=== PATIENT | male | born 1980 | race Caucasian/White ===

== ENCOUNTER 2018-07-11 11:36 | Emergency (ER) | payer MEDICAID ==
[~2018-07-11] VITALS: Ht 172.7 cm; Wt 93.4 kg
[2018-07-11 11:40] VITALS: BP 139/72; Ht 172.7 cm; Wt 93.4 kg
[2018-07-11] MEDS ORDERED: LISINOPRIL-HCT1 EAC8 PO (11:43)
[2018-07-11] MEDS ORDERED: NORVASC5 MG PO (11:44)
[2018-07-11 12:28] LABS: BASOPHILS 0.2 % (0-2); EOSINOPHILS 0.3 % (0-7); HEMATOCRIT 46.3 % (42.0-54.0); HEMOGLOBIN 16.4 g/dL (13.5-17.5); IMMATURE GRANULOCYTES 0.2 % (0-5); LYMPHOCYTES 21.8 % (15-50); MCH 32.4 pg (26.0-34.0); MCHC 35.4 g/dL (31.0-37.0); MCV 91.5 fL (80.0-100.0); MEAN PLATELET VOLUME 9.4 fL (7.4-10.4); MONOCYTES 5.4 % (2-11); NEUTROPHILS 72.1 % (40-80); PLATELET COUNT 227 10x3/uL (130-400); RBC 5.06 10x6/uL (4.20-6.10); RDW 12.7 % (11.5-14.5); WBC 8.9 10x3/uL (4.8-10.8)
[2018-07-11 12:32] LABS: APTT 25.4 SECONDS (22.8-39.4); INR 1.01 (0.85-1.17); PROTIME 12.8 SECONDS (11.6-15.0)
[2018-07-11 12:36] LABS: ALBUMIN 4.2 g/dL (3.4-5.0); ALKALINE PHOSPHATASE 51 U/L (46-116); ALT (SGPT) 44 U/L (10-68); CALC OSMOLALITY 280 mosm/kg (275-300); CALCIUM 8.9 mg/dL (8.5-10.1); CARBON DIOXIDE 26.4 mmol/L (21.0-32.0); CHLORIDE - SERUM 103 mmol/L (98-107); GLUCOSE 106 mg/dL (74-106); POTASSIUM - SERUM 3.5 mmol/L (3.5-5.1); PROTEIN - SERUM 7.5 g/dL (6.4-8.2); SODIUM 140 mmol/L (136-145); UREA NITROGEN 17 mg/dL (7-18); eGFR NON AFRICAN AMERICAN 89 mL/min (90-120)
[2018-07-11 18:31] VITALS: Ht 172.7 cm; Wt 93.4 kg
== END 2018-07-11 13:45 | disposition home or self-care (01) ==
LOC: D.ER 11:36
PROVIDERS: Family Medicine
DX: S30.21XA Contusion of penis, initial encounter (principal); X58.XXXA Exposure to other specified factors, initial encounter; Y93.89 Activity, other specified; Y92.019 Unspecified place in single-family (private) house as the place of occurrence of the external cause

== ENCOUNTER 2018-07-11 16:22 | Day surgery (SDC) | payer MEDICAID ==
[~2018-07-11 16:22] MED LIST: LISINOPRIL-HCT1 EAC8 PO; NORVASC5 MG PO
[2018-07-11 18:31] VITALS: BP 117/73; BMI 30.4
--- NOTE | 2018-07-11 22:30 | NUR ---
RESEVED PT FROM RECOVERY. PT ALERT AND ORIENTED. NO SIGNS OF DISTRESS. BREATHING EVEN AND ULABORED. 3LO2 NASAL CANNULA. VITALS STABLE. WILL FALLOW UP
[2018-07-11 22:37] VITALS: BP 121/79
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
== END 2018-07-11 23:45 | disposition home or self-care (01) ==
LOC: D.OPS 16:22 → D.MS 22:15 → D.OPS 23:45
PROVIDERS: ATTEND Urology
DX: S30.21XA Contusion of penis, initial encounter (principal); X58.XXXA Exposure to other specified factors, initial encounter; Z01.812 Encounter for preprocedural laboratory examination